=== PATIENT | male | born 1955 | race African-American/Black ===

== ENCOUNTER 2016-08-01 16:45 | Emergency (ER) | payer SELFPAY ==
[2016-08-01 17:37] LABS: BASO % 0.2 % (0-2); EOS % 0.5 % (0-7); EOSINOPHIL ABSOLUTE COUNT 0.1 tho/cmm (0.0-0.7); HCT-HEMATOCRIT 26.4 % (36.0-53.5); HGB-HEMOGLOBIN 8.7 gm/dl (13.5-17.0); IMMATURE GRANULOCYTES ABSOLUTE 0.12 tho/cmm (0-0.03); IMMATURE GRANULOCYTES PERCENT 1.2 % (0-0.3); LYMPH % 23.5 % (20-45); LYMPH ABSOLUTE COUNT 2.3 tho/cmm (0.8-4.5); MCH (MEAN CORPUSCULAR HGB) 27.6 pg (28.0-32.0); MCV (MEAN CELL VOLUME) 83.8 fl (82.0-96.0); MEAN PLATELET VOLUME 8.8 cmc (9.4-12.4); MONO % 5.5 % (0-12); MONOCYTE ABSOLUTE COUNT 0.6 tho/cmm (0.0-1.2); NEUTROPHIL ABSOLUTE COUNT 6.9 tho/cmm (1.6-8.0); NEUTROPHIL-AUTOMATED 6.9 tho/cmm (1.6-8.0); NEUTROPHILS % 69.1 % (40-80); PLATELET COUNT 427 tho/cmm (150-450); RED BLOOD COUNT 3.15 mil/cmm (4.40-5.70); RED CELL DISTRIBUTION WIDTH 15.3 % (12.4-16.4); WHITE BLOOD COUNT 9.9 tho/cmm (4.0-10.0)
[2016-08-01 17:53] LABS: ALB/GLOB RATIO 0.4 (0.8-2.0); ALBUMIN 2.6 g/dl (3.5-5.0); ALKALINE PHOSPHATASE 307 U/L (33-138); ALT/SGPT 22 U/L (12-78); ANION GAP 14 mmol/L (0-20); AST/SGOT 42 U/L (10-40); BILIRUBIN,TOTAL 0.4 mg/dl (0.0-1.5); BLOOD UREA NITROGEN 16 mg/dl (6-24); CALCIUM 9.2 mg/dl (8.5-10.5); CARBON DIOXIDE-VENOUS 25 mmol/L (22-32); CHLORIDE 102 mmol/l (96-110); CREATININE 1.04 mg/dl (0.60-1.30); GLUCOSE 124 mg/dL (70-110); POTASSIUM 3.7 mmol/L (3.7-5.1); SODIUM 137 mmol/L (135-145); eGFR VALUE FOR BLACK >90 mL/Min
[2016-08-01 17:59] LABS: URINE BILIRUBIN NEGATIVE (NEG); URINE BLOOD NEGATIVE (NEG); URINE GLUCOSE (UA) NEGATIVE (NEG); URINE KETONE NEGATIVE (NEG); URINE LEUKOCYTE ESTERASE POSITIVE (NEG); URINE NITRITE NEGATIVE (NEG); URINE PROTEIN MODERATE (NEG)
[2016-08-01 18:04] LABS: URINE APPEARANCE HAZY; URINE COLOR YELLOW
[2016-08-01 18:07] LABS: URINE AMORPHOUS 1+; URINE EPITHELIAL CELLS RARE /[HPF] (0-10); URINE MUCUS 1+; URINE RBC 0 /[HPF] (0-5)
[2016-08-01] MEDS ORDERED: PRILOSEC OTC20 M1 PO (18:43)
[2016-08-01] MEDS ORDERED: ULTRAM50 M1 PO (18:43)
== END 2016-08-01 19:03 ==
LOC: EDMED 16:45
PROVIDERS: Emergency Medicine
DX: M54.5 Low back pain (principal); D64.9 Anemia, unspecified; R63.4 Abnormal weight loss; Z79.899 Other long term (current) drug therapy